=== PATIENT | female | born 1945 | race Caucasian/White ===

== ENCOUNTER 2021-07-10 23:57 | Inpatient (IN) ==
[2021-07-11] MEDS ORDERED: ACETAMINOPHEN 325 MG TABLET PO ONE (00:44)
[2021-07-11] MEDS ORDERED: methylPREDNISolone SOD SUC 125 MG/2 ML VIAL IV STA (00:44)
[2021-07-11] MEDS ORDERED: ALBUTEROL/IPRATROPIUM 3 ML NEB RESP TX STA (00:44)
[2021-07-11] MEDS ORDERED: ASPIRIN 325 MG TABLET PO STA (00:44)
[2021-07-11 00:52] LABS: Basophils % 0.4 % (0.0-0.8); Eosinophils # 0.1 10*3/uL (0.0-0.87); Eosinophils % 1.8 % (0.00-10.9); Hematocrit 39.3 VOL% (35.7-47.0); Hemoglobin 12.3 GM/DL (12.0-16.0); Immature Granulocytes % 0.2 %; Immature Granulocytes Absolute 0.01 #; Lymphocytes # 0.7 10*3/uL (1.4-4.0); Lymphocytes % 12.6 % (21.3-54.2); Mean Corpuscular HGB Conc 31.3 GM/DL (32-36); Mean Corpuscular Volume 92.3 FL (87-102); Mean Platelet Volume 10.5 FL (9.6-12.0); Monocytes # 0.7 10*3/uL (0.11-0.8); Monocytes % 12.8 % (1.7-12.7); Neutrophils % 72.2 % (38.7-73.9); Platelet Count 235 T/CUMM (130-400); Red Blood Count 4.26 MC/CUMM (3.8-5.5); White Blood Count 5.5 T/CUMM (4-12)
[2021-07-11 01:03] LABS: Arterial Base Excess iSTAT 1 MMOL/L (-2.5-2.5); Arterial Bicarbonate iSTAT 25.8 MMOL/L (20-26); Arterial O2 Saturation iSTAT 98 % (95-100); Arterial PCO2 iSTAT 39 MM HG (35-48); Arterial PO2 iSTAT 104 MM HG (80-95); Arterial Total CO2 iSTAT 27 MMO/L (23-27); Arterial pH iSTAT 7.427 (7.35-7.45)
[2021-07-11] MEDS ORDERED: VANCOMYCIN INJ 1,000 MG in SODIUM CHLORIDE 0.9% 250 ML IV STA (01:05)
[2021-07-11] MEDS ORDERED: PIPERACILLIN/TAZOBACTAM 3,375 MG in SODIUM CHLORIDE 0.9% 100 ML IV STA (01:05)
[2021-07-11 01:15] LABS: Albumin 2.8 G/DL (3.4-5.0); Bilirubin,Total 0.6 MG/DL (0.20-1.00); Osmolality,Calculated 285.7 MOS/KG (273-304); Potassium 4.4 MMOL/L (3.5-5.1); Total Protein 7.2 G/DL (6.4-8.2)
[2021-07-11] MEDS ORDERED: hydrALAZINE 20 MG/1 ML VIAL IV STA (01:27)
[2021-07-11 01:43] LABS: INR 0.9; PT Patient Result 10.3 SECS (10.5-12.0)
[2021-07-11] MEDS ORDERED: GLUCAGON 1 MG VIAL IM PRN (01:55)
[2021-07-11] MEDS ORDERED: ONDANSETRON 4 MG/2 ML VIAL IV PRN (01:55)
[2021-07-11] MEDS ORDERED: DEXTROSE 10% 250 ML BAG IV PRN ×2 (02:01→02:03)
[2021-07-11] MEDS: AZITHROMYCIN INJ 500 MG in SODIUM CHLORIDE 0.9% 250 ML IV SCH (03:35)
[2021-07-11 06:18] LABS: Alanine Aminotransferase 42 U/L (13-56); Albumin 2.8 G/DL (3.4-5.0); Alkaline Phosphatase 95 U/L (45-117); Aspartate Amino Transferase 34 U/L (0-37); Blood Urea Nitrogen 17 MG/DL (7-18); Carbon Dioxide 24 MMOL/L (21-32); Chloride 108 MMOL/L (98-107); Glucose 321 MG/DL (74-106); Osmolality,Calculated 290.5 MOS/KG (273-304); Potassium 3.9 MMOL/L (3.5-5.1); Sodium 139 MMOL/L (136-145); Thyroid Stimulating Hormone < 0.005 uIU/ml (0.358-3.74); Total Protein 6.9 G/DL (6.4-8.2)
[2021-07-11] MEDS: INSULIN REGULAR 100 UNIT/ML SUBCUT SCH ×4 (08:45→22:51)
[2021-07-11] MEDS: PANTOPRAZOLE 40 MG TABLET PO SCH (08:45)
[2021-07-11] MEDS: methylPREDNISolone SOD SUC 40 MG/1 ML VIAL IV SCH ×3 (08:45→21:42)
[2021-07-11] MEDS ORDERED: predniSONE 5 MG TABLET PO SCH (09:00)
[2021-07-11] MEDS: cefTRIAXone 1,000 MG in SODIUM CHLORIDE 0.9% 100 ML IV SCH (09:28)
[2021-07-11] MEDS: ALBUTEROL/IPRATROPIUM 3 ML NEB RESP TX SCH ×2 (12:35→19:08)
[2021-07-11] MEDS ORDERED: GABAPENTIN 600 MG TABLET PO ONE (22:25)
[2021-07-12] MEDS: ALBUTEROL/IPRATROPIUM 3 ML NEB RESP TX SCH ×4 (00:10→20:18)
[2021-07-12] MEDS: methylPREDNISolone SOD SUC 40 MG/1 ML VIAL IV SCH ×3 (01:56→22:47)
[2021-07-12] MEDS: AZITHROMYCIN INJ 500 MG in SODIUM CHLORIDE 0.9% 250 ML IV SCH (02:34)
[2021-07-12 05:02] LABS: Hematocrit 35.9 VOL% (35.7-47.0); Hemoglobin 11.4 GM/DL (12.0-16.0); Immature Granulocytes % 0.4 %; Immature Granulocytes Absolute 0.02 #; Lymphocytes # 0.4 10*3/uL (1.4-4.0); Lymphocytes % 8.4 % (21.3-54.2); Mean Corpuscular HGB Conc 31.8 GM/DL (32-36); Mean Corpuscular Volume 92.1 FL (87-102); Mean Platelet Volume 10.8 FL (9.6-12.0); Monocytes # 0.4 10*3/uL (0.11-0.8); Monocytes % 7.3 % (1.7-12.7); Neutrophils % 83.9 % (38.7-73.9); Platelet Count 213 T/CUMM (130-400); Red Cell Distribution Width 17.7 % (9.3-17.3); White Blood Count 5.2 T/CUMM (4-12)
[2021-07-12 05:29] LABS: Calcium 9.6 MG/DL (8.5-10.1); Osmolality,Calculated 295.5 MOS/KG (273-304); Potassium 3.8 MMOL/L (3.5-5.1)
[2021-07-12] MEDS: INSULIN REGULAR 100 UNIT/ML SUBCUT SCH ×4 (09:33→22:46)
[2021-07-12] MEDS: PANTOPRAZOLE 40 MG TABLET PO SCH (09:33)
[2021-07-12] MEDS: cefTRIAXone 1,000 MG in SODIUM CHLORIDE 0.9% 100 ML IV SCH (09:34)
[2021-07-12] MEDS ORDERED: ALBUTEROL 2.5 MG/3 ML NEB RESP TX PRN (09:48)
[2021-07-12] MEDS: VERAPAMIL SR 120 MG TABLET PO SCH ×2 (12:55→22:47)
[2021-07-12] MEDS: glipiZIDE 10 MG TABLET PO SCH (12:55)
[2021-07-12] MEDS: allopurinoL 100 MG TABLET PO SCH (12:55)
[2021-07-12] MEDS: FERROUS SULFATE 325 MG TABLET PO SCH (12:55)
[2021-07-12] MEDS: ENOXAPARIN 40 MG/0.4 ML SYRINGE SUBCUT SCH (12:55)
[2021-07-12] MEDS: GABAPENTIN 600 MG TABLET PO SCH ×3 (12:55→23:55)
[2021-07-12] MEDS ORDERED: ASPIRIN EC 81 MG TABLET PO SCH (21:00)
[2021-07-12] MEDS ORDERED: MELOXICAM 7.5 MG TABLET PO SCH (21:00)
[2021-07-12] MEDS ORDERED: MONTELUKAST 10 MG TABLET PO SCH (21:00)
[2021-07-12] MEDS ORDERED: INSULIN GLARGINE 100 UNIT/ML SUBCUT SCH (21:00)
[2021-07-12] MEDS: CHOLECALCIFEROL 5,000 UNIT TABLET PO SCH (22:46)
[2021-07-13] MEDS: ALBUTEROL/IPRATROPIUM 3 ML NEB RESP TX SCH ×2 (02:00→07:39)
[2021-07-13] MEDS: AZITHROMYCIN INJ 500 MG in SODIUM CHLORIDE 0.9% 250 ML IV SCH (02:35)
[2021-07-13 04:59] LABS: Hematocrit 32.6 VOL% (35.7-47.0); Hemoglobin 10.3 GM/DL (12.0-16.0); Immature Granulocytes % 0.2 %; Immature Granulocytes Absolute 0.01 #; Lymphocytes # 0.2 10*3/uL (1.4-4.0); Lymphocytes % 3.8 % (21.3-54.2); Mean Corpuscular HGB Conc 31.6 GM/DL (32-36); Mean Corpuscular Volume 94.8 FL (87-102); Mean Platelet Volume 10.8 FL (9.6-12.0); Monocytes # 0.2 10*3/uL (0.11-0.8); Monocytes % 3.8 % (1.7-12.7); Neutrophils % 92.2 % (38.7-73.9); Platelet Count 187 T/CUMM (130-400); Red Blood Count 3.44 MC/CUMM (3.8-5.5); White Blood Count 6.4 T/CUMM (4-12)
[2021-07-13 05:15] LABS: Calcium 9.2 MG/DL (8.5-10.1); Osmolality,Calculated 296.4 MOS/KG (273-304); Potassium 5.4 MMOL/L (3.5-5.1)
[2021-07-13 05:19] LABS: Lymphocytes 4 % (20-55); Platelet Estimate Adequate; Total Cells Counted 100
[2021-07-13] MEDS ORDERED: SODIUM POLYSTYRENE SULFATE 15 GM/60 ML BOTTLE PO ONE (07:23)
[2021-07-13] MEDS ORDERED: FUROSEMIDE 20 MG/2 ML VIAL IV ONE (08:10)
[2021-07-13] MEDS ORDERED: CETIRIZINE 10 MG TABLET PO SCH (09:00)
[2021-07-13] MEDS: glipiZIDE 10 MG TABLET PO SCH (09:30)
[2021-07-13] MEDS: CHOLECALCIFEROL 5,000 UNIT TABLET PO SCH (09:30)
[2021-07-13] MEDS: FERROUS SULFATE 325 MG TABLET PO SCH (09:30)
[2021-07-13] MEDS: ENOXAPARIN 40 MG/0.4 ML SYRINGE SUBCUT SCH (09:30)
[2021-07-13] MEDS: VERAPAMIL SR 120 MG TABLET PO SCH (09:30)
[2021-07-13] MEDS: allopurinoL 100 MG TABLET PO SCH (09:31)
[2021-07-13] MEDS: GABAPENTIN 600 MG TABLET PO SCH ×2 (09:31→14:33)
[2021-07-13] MEDS: INSULIN REGULAR 100 UNIT/ML SUBCUT SCH ×2 (09:31→14:23)
[2021-07-13] MEDS: cefTRIAXone 1,000 MG in SODIUM CHLORIDE 0.9% 100 ML IV SCH (09:31)
[2021-07-13] MEDS: PANTOPRAZOLE 40 MG TABLET PO SCH (09:31)
[2021-07-13] MEDS: prednisoLONE ACETATE 1% OPH SUSP 5 ML BOTTLE BOTH EYES SCH ×2 (09:31→14:33)
[2021-07-13] MEDS: methylPREDNISolone SOD SUC 40 MG/1 ML VIAL IV SCH (09:32)
[2021-07-13 14:17] VITALS: BP 159/65
== END 2021-07-13 14:56 | disposition home health service (06) | DRG 190 ==
LOC: N.EDINP 23:57 → N.ED 23:57 → SUATTDRO 07-11 01:55 → N.TELEN 07-11 04:08 → SUATTDRO 07-12 11:15
PROVIDERS: ADMIT Family Medicine; ATTEND Family Medicine